=== PATIENT | female | born 1985 | race Two or more races ===

== ENCOUNTER 2020-04-08 10:09 | Emergency (ER) | payer SELFPAY ==
[~2020-04-08] VITALS: Ht 165.1 cm; Wt 82.0 kg
[2020-04-08] MEDS ORDERED: METOCLOPRAMIDE HCL 10MG TABLET PO ONE (10:45)
[2020-04-08] MEDS ORDERED: KETOROLAC 60MG/2ML VIAL IM ONE (10:45)
[2020-04-08 12:05] VITALS: BP 129/87
== END 2020-04-08 12:13 | disposition home or self-care (01) ==
LOC: ER 10:09
DX: M25.512 Pain in left shoulder (principal); M25.552 Pain in left hip; M54.2 Cervicalgia; R10.2 Pelvic and perineal pain; V49.88XA Car occupant (driver) (passenger) injured in other specified transport accidents, initial encounter; Y93.89 Activity, other specified; Y92.89 Other specified places as the place of occurrence of the external cause; Y99.8 Other external cause status
CPT/HCPCS: 70450; 72125; 73030; 73502; 96372; 99283; J1885; J8597